=== PATIENT | male | born 2000 | race American Indian/Alaskan Native ===

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

== ENCOUNTER 2021-01-14 05:10 | Emergency (ER) | payer SELFPAY ==
--- NOTE | 2021-01-14 08:24 | XRay Report ---
XR chest routine 2V INDICATION / CLINICAL INFORMATION: chest pain. COMPARISON: None available. FINDINGS: SUPPORT DEVICES: None. HEART /PULMONARY VASCULATURE: No significant abnormality. LUNGS / PLEURA: No significant pulmonary or pleural abnormality. No pneumothorax. ADDITIONAL FINDINGS: No significant additional findings. IMPRESSION: 1. No acute findings. Signer Name: Jeff Ugalde MD Signed: 01/14/2021 8:19 AM Workstation Name: [id number]
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
[2021-01-14 09:48] VITALS: BP 160/109
== END 2021-01-14 09:48 | disposition home or self-care (01) ==
LOC: ED 05:10
DX: R07.89 Other chest pain (principal); M94.0 Chondrocostal junction syndrome [Tietze]; R03.0 Elevated blood-pressure reading, without diagnosis of hypertension; Z79.899 Other long term (current) drug therapy
CPT/HCPCS: 71046

== ENCOUNTER 2021-03-05 10:25 | Emergency (ER) | payer SELFPAY ==
[2021-03-05] MEDS ORDERED: HYDROcodone/ACETAMINOPHEN 10-325MG TAB PO ONE ×2 (11:24→14:00)
[2021-03-05] MEDS ORDERED: MORPHINE 4 MG/1 ML INJ IV ONE (11:33)
[2021-03-05] MEDS ORDERED: ONDANSETRON 4 MG/2 ML INJ IV ONE (11:33)
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
[2021-03-05] MEDS ORDERED: MORPHINE 2 MG/1 ML INJ ONE (12:30)
[2021-03-05 12:32] VITALS: BP 130/86
--- NOTE | 2021-03-07 19:01 | Electrocardiograph Report ---
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
== END 2021-03-05 15:00 ==
LOC: ED 10:25
DX: S32.009A Unspecified fracture of unspecified lumbar vertebra, initial encounter for closed fracture (principal); S29.9XXA Unspecified injury of thorax, initial encounter; M79.18 Myalgia, other site; R10.84 Generalized abdominal pain; Z79.899 Other long term (current) drug therapy; V89.2XXA Person injured in unspecified motor-vehicle accident, traffic, initial encounter; Y93.89 Activity, other specified; Y92.488 Other paved roadways as the place of occurrence of the external cause; Y99.8 Other external cause status
CPT/HCPCS: 93005; 96374; 96375; 99285; J2270; J2405